=== PATIENT | male | born 1970 | race Hispanic/Latino ===

== ENCOUNTER 2023-03-18 03:09 | Emergency (ER) | payer OTHER ==
[2023-03-18] MEDS ORDERED: Bacitracin 1 PK ONE (04:39)
== END 2023-03-18 04:48 ==
LOC: NAV ERS 03:09 → EEVIPCON 03:09 → NAV ERS 04:48
DX: S01.511A Laceration without foreign body of lip, initial encounter (principal); I10 Essential (primary) hypertension; W22.8XXA Striking against or struck by other objects, initial encounter
CPT/HCPCS: 12013; 99283